=== PATIENT | female | born 1960 | race Asian ===

== ENCOUNTER 2016-10-19 08:43 | Inpatient (IN) | payer OTHER ==
[~2016-10-19] VITALS: Ht 170.2 cm; Wt 81.1 kg
[2016-10-19] MEDS ORDERED: SOD CHLORIDE 0.9% 1,000 ML IV STA (09:18)
[2016-10-19] MEDS ORDERED: CLIN-73 GTB (09:37)
[2016-10-19] MEDS ORDERED: LACT1CAP4 GTB (09:38)
[2016-10-19] MEDS ORDERED: ALBU2.5V3 NEB ×2 (09:39)
[2016-10-19] MEDS ORDERED: CHLO473M4 MM (09:40)
[2016-10-19] MEDS ORDERED: DOCU-144 GTB (09:42)
[2016-10-19] MEDS ORDERED: DESM0.1T2 GTB (09:46)
[2016-10-19] MEDS ORDERED: BISA10SU55 RC (09:47)
[2016-10-19] MEDS ORDERED: APIX5TAB GTB (09:48)
[2016-10-19] MEDS ORDERED: FERR220S3 GTB (09:52)
[2016-10-19] MEDS ORDERED: [UNRECOGNIZED DRUG - CODE] RC (09:53)
[2016-10-19] MEDS ORDERED: LEVE500S9 GTB (09:54)
[2016-10-19] MEDS ORDERED: ATOR20TA38 GTB (09:54)
[2016-10-19] MEDS ORDERED: MAGN400O4 GTB (09:55)
[2016-10-19] MEDS ORDERED: ACET-2047 GTB ×3 (09:56→10:04)
[2016-10-19 09:57] LABS: ADD SCAN DIFF NO
[2016-10-19] MEDS ORDERED: RANI150T5 GTB (09:58)
[2016-10-19] MEDS ORDERED: CALC-516 GTB (09:59)
[2016-10-19] MEDS ORDERED: ZINC220T GTB (10:00)
[2016-10-19 10:01] LABS: ABNORMAL IP MESSAGE 1; MEAN CORPUSCULAR HEMOGLOBIN 34.5 pg (29.0-33.0); MEAN CORPUSCULAR HGB CONC 34.8 g/dl (32.0-37.0); MEAN CORPUSCULAR VOLUME 99.1 fl (82.0-101.0); PLATELET COUNT 53 10^3/UL (140-415); RED BLOOD COUNT 2.32 10^6/ul (4.20-5.40); RED CELL DISTRIBUTION WIDTH 17.3 % (11.5-14.5); WHITE BLOOD COUNT 5.7 10^3/ul (4.8-10.8)
[2016-10-19] MEDS ORDERED: CRAN3875 GTB (10:01)
[2016-10-19] MEDS ORDERED: ASCO500S2 GTB (10:01)
[2016-10-19] MEDS ORDERED: ACET-141 PO (10:02)
[2016-10-19 10:15] LABS: ALBUMIN 3.6 g/dl (3.3-4.9); POTASSIUM 4.9 mmol/L (3.5-5.1)
[2016-10-19] MEDS ORDERED: MULT9LIQ4 GTB (10:15)
[2016-10-19 10:17] LABS: BILIRUBIN,INDIRECT 0.5 mg/dl (0-1.1); BILIRUBIN,TOTAL 0.5 mg/dl (0.2-1.3); CREATININE 0.6 mg/dl (0.44-1.00); INR 0.87; PROTIME 11.8 Sec (12.2-14.2); PT RATIO 0.9
[2016-10-19 10:18] LABS: ALBUMIN/GLOBULIN RATIO 0.94; PARTIAL THROMBOPLASTIN TIME 33.9 Sec (25.0-35.0); TOTAL PROTEIN 7.4 g/dl (6.1-8.1)
[2016-10-19] MEDS ORDERED: ACETAMINOPHEN 325 MG TAB PO PRN (11:00)
[2016-10-19] MEDS ORDERED: ONDANSETRON 4 MG INJ IV PRN (11:00)
[2016-10-19] MEDS ORDERED: ALBUTEROL 0.083% (NEB) 2.5 MG/3 ML AMP NEB PRN (12:30)
--- NOTE | 2016-10-19 13:19 | HP ---
DATE OF ADMISSION: 10/19/2016 HISTORY OF CHIEF COMPLAINT: Drop in hemoglobin noted on routine labs at long term [facility] [place]. 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 Patient also with history of respiratory failure with tracheostomy and dysphagia with percutaneous endoscopic gastrostomy. The patient was subsequently decannulated. However, in May of 2006, the patient had a severe pneumonia and had to be placed on ventilatory support and underwent tracheostomy. Patient also with coronary artery disease, diabetes mellitus, hypothyroidism, seizure disorder, COPD, CHF, history of KS, and DVT. The patient was recuperating at [facility] [place] and noted to have a hemoglobin drop to 8. Per previous records, the patient's hemoglobin was 10.4. Unfortunately, patient is Orthodoxy and cannot get blood transfusion. On evaluation in the emergency room, the hemoglobin was 8.0, hematocrit 23.0, and the patient will be admitted for further evaluation and management. PAST MEDICAL/SURGICAL HISTORY: Per HPI. SOCIAL HISTORY: Patient is currently a resident of a long term facility. There are no reports of tobacco, alcohol or illicit drug use. FAMILY HISTORY: None. ALLERGIES: NO KNOWN ALLERGIES. MEDICATIONS ON ADMISSION: 1. Tylenol. 2. DuoNeb. 3. Eliquis. 4. Vitamin C. 5. Atorvastatin. 6. Bisacodyl p.r.n. 7. Peridex. 8. Desmopressin. 9. Colace. 10. Keppra. 11. Mineral oil. 12. Ranitidine. 13. Zinc sulfate. 14. Calcium carbonate.. 15. Vitamin D3. 16. Cranberry extract. 17. Acidophilus pectin capsule 18. Multivitamins with iron. REVIEW OF SYSTEMS: Unable to obtain due to patient's condition. The patient is status post cerebrovascular accident and cannot provide any history. PHYSICAL ASSESSMENT GENERAL: Well-developed, well-nourished female. Currently opens eyes in traces. Does not follow any commands. VITAL SIGNS: Temperature is 98.1, pulse is 57, respiratory rate 20, blood pressure 156/69, saturation is 99% on 4 liters via the tracheostomy site. HEENT: Head is atraumatic, normocephalic. Pupils equal, round, reactive to light and accommodation. Patient has small area of subconjunctival hemorrhage over medial corner of left eye. Oral mucosa is pink and moist. NECK: Supple. There is a tracheostomy at the base of the neck with no bleeding. CHEST: Lungs have diminished air entry bilaterally, scattered rhonchi. CARDIOVASCULAR: Normal S1, S2. No murmurs, gallops, clicks, or rubs noted. ABDOMEN: Protuberant, soft, nondistended, nontender. G-tube with intact stoma. EXTREMITIES: Mild edema. Pulses equal bilaterally 2+. Patient has a right side dense hemiplegia. SKIN: There is no rash, petechiae noted. NEUROLOGIC: Patient is nonverbal, awake, opens eyes and traces, does not follow any commands. LABORATORY DATA: On admission, CBC: White blood cells 5.7, hemoglobin 8.0, hematocrit 23.0, platelets 53. Chemistry: Sodium is 134, potassium 4.9, chloride 98, carbon dioxide 28, anion gap 15, BUN is 30, creatinine 0.6, glucose 85. AST is 71, ALT, 86, alkaline phosphate is 138, lipase is 411. ASSESSMENT AND PLAN: 1. Anemia and thrombocytopenia: The patient is Orthodoxy and cannot get any blood products. Would continue to monitor patient. We will obtain a stool for OD. Ask Dr. Bishop to see patient in gastroenterology consultation. 2. Tracheostomy with history of respiratory failure and pneumonia: Will obtain chest x-ray and continue breathing treatment and oxygen supplementation. 3. History of chronic obstructive pulmonary disease. 4. History of cerebrovascular accident with right-sided hemiplegia. 5. Dysphagia with PEG tube: Will resume patient's PEG tube feeding. Continue aspiration precaution 6. Diabetes mellitus type 2. Would obtain venous Doppler. If negative, we will start patient on sequential compression device for deep venous thrombosis prophylaxis. Continue Protonix for peptic ulcer disease prophylaxis. Further recommendations based on clinical course. Plan of care discussed with Dr. Lisa. Dictated By: LATONIA CONRAD ENGLISH COMPOSITION TEACHER for SMILEY LISA MD, SR/NTS Conf#: [id number] DID#: [id number] MTDD
--- NOTE | 2016-10-19 13:20 | RADRPT ---
PROCEDURE: Chest Radiograph. CLINICAL INDICATION: Pneumonia TECHNIQUE: Single frontal chest radiograph. COMPARISON: None available FINDINGS: The patient is moderately rotated. Heart size is poorly evaluated. Atherosclerotic calcifications are present. There is moderate elevation of the right hemidiaphragm. There is low lung volumes with basilar atelectasis. No confluent or lobar infiltrate is seen. The bones are intact. IMPRESSION: 1. Low lung volumes basilar atelectasis. 2. Elevation right hemidiaphragm. RPTAT: KK .Balaji Christianson MD, MD Date Time Electronically viewed and signed by .Balaji Christianson MD, MD on 10/19/2016 13:19 .B/
--- NOTE | 2016-10-19 13:29 | RADRPT ---
PROCEDURE: US Lower extremity Venous. CLINICAL INDICATION: Pain and swelling TECHNIQUE: Multiple sonographic images of the bilateral lower extremity deep venous system was obt ained utilizing grayscale, color-flow, compressive sonography and doppler imaging with augmentation. The images were reviewed on a PACS workstation. COMPARISON: None. FINDINGS: There is normal compressibility and flow within the bilateral common femoral, deep femoral, superfic ial femoral, posterior tibial, peroneal and popliteal veins. IMPRESSION: No sonographic evidence for deep venous thrombosis. RPTAT:AAJJ Physician Vernon Date Time Electronically viewed and signed by Physician Vernon on 10/19/2016 13:29 /
--- NOTE | 2016-10-19 13:47 | ERA ---
ER Documentation Chief Complaint Date/Time DATE: 10/19/16 TIME: 13:39 Chief Complaint FROM [facility] DUE ELEVATED BUN HPI This 56-year-old female who is noncommunicative her baseline and has multiple medical comorbidities was sent to the ER for workup of low platelets and low hemoglobin. She was sent from her facility by Dr. Lisa. Current her paperwork she's had low hemoglobin and also has low platelets. She is a Jehov[employer]' s Witness and cannot receive blood products according to the paperwork sent with her. There are no reports of abnormal vital signs. There are no reports of GI bleeding. ROS All systems reviewed and are negative except as per history of present illness. Medications Home Meds Reported Medications Multivit &Minerals/Ferrous Fum (MULTIVITAMIN LIQUID) 9 Mg/15 Ml Liquid, 3 MG GTB DAILY 10/19/16 Acetaminophen* (Acetaminophen*) 650 Mg Tablet, 650 MG GTB BID Y for G-TUBE CHANGE, #30 TAB 10/19/16 Acetaminophen* (Acetaminophen*) 500 MG Extra Strength Tablet, 1000 MG PO Q4 Y for MODERATE PAIN LEVEL 4-6, TAB 10/19/16 Cran/Vitc/Mannose/Inulin/Brom (Uti-Stat Liquid) 3,875 Mg/30 Ml Liquid, 30 MG GTB DAILY 10/19/16 Ascorbic Acid* (Vitamin C* Liq) 500 Mg/5 Ml Syrup, 500 MG GTB DAILY, ML 10/19/16 Zinc Sulfate* (Zinc Sulfate*) 220 Mg Tablet, 220 MG GTB DAILY, TAB 10/19/16 Calcium Carbonate/Vitamin D3 (OYSTER SHELL CALCIUM TABLET) 1 Each Tablet, 1 EACH GTB DAILY, TAB 10/19/16 Ranitidine Hcl* (Ranitidine Hcl*) 150 Mg Tablet, 150 MG GTB Q12, #60 TAB 10/19/16 Acetaminophen* (Acetaminophen*) 650 Mg Tablet, 650 MG GTB TRACH CHANGE Y for PAIN AND OR ELEVATED TEMP, #30 TAB GIVE 30 MIN PRIOR TO CHANGING 10/19/16 Acetaminophen* (Acetaminophen*) 650 Mg Tablet, 650 MG GTB Q4H WHILE AWAKE Y for MILD PAIN LEVEL 1-3, #30 TAB 10/19/16 Magnesium Hydroxide* (Milk Of Magnesia*) 400 Mg/5 Ml Oral.susp, 30 ML GTB DAILY Y for CONSTIPATION, ML 10/19/16 Atorvastatin Calcium* (Atorvastatin Calcium*) 20 Mg Tablet, 20 MG GTB QHS, #30 TAB 10/19/16 Levetiracetam* (Levetiracetam*) 500 Mg/5 Ml Solution, 500 MG GTB BID, ML 10/19/16 Mineral Oil (READY TO USE ENEMA) 133 Ml Enema, 133 ML RC PRN Y for SEVERE CONSTIPATION, ENEMA 10/19/16 Ferrous Sulfate (Ferrous Sulfate) 220 Mg/5 Ml Elixir, 330 MG GTB TID, BOTTLE 10/19/16 Apixaban* (Eliquis*) 5 Mg Tablet, 5 MG GTB BID, TAB 10/19/16 Bisacodyl (Dulcolax) 10 Mg Supp.rect, 10 MG RC PRN Y for CONSTIPATION, SUPP.RECT 10/19/16 Desmopressin Acetate* (Ddavp*) 0.1 Mg Tablet, 0.15 MG GTB BID, #60 TAB 10/19/16 Docusate Sodium* (Colace*) 100 Mg Capsule, 100 MG GTB QHS Y for CONSTIPATION, # 30 CAP 10/19/16 Chlorhexidine Gluconate (Peridex) 473 Ml Mouthwash, 15 ML MM Q12, BOTTLE 10/19/16 Albuterol Sulfate* (Albuterol Sulfate* Neb) 0.083%-3 Ml Neb, 2.5 MG NEB Q3H Y for WHEEZING AND SOB, #30 VIAL 10/19/16 Albuterol Sulfate* (Albuterol Sulfate* Neb) 0.083%-3 Ml Neb, 2.5 MG NEB Q6 Y for WHEEZING AND SOB, #30 VIAL 10/19/16 Lactobacillus Acidophilus/Pect (Acidophilus-Pectin Capsule) 1 Each Capsule, 1 EACH GTB DAILY, CAP 10/19/16 Clindamycin Hcl* (Clindamycin Hcl*) 300 Mg Capsule, 300 MG GTB Q6, CAP STARTED 10-16-16 FOR 10 DAYS 10/19/16 Allergies Allergies: Coded Allergies: No Known Allergy (Unverified , 10/19/16) PMhx/Soc History of Surgery: Yes (TRACH) Hx Alcohol Use: No Hx Substance Use: No Smoking Status: Never smoker Physical Exam Vitals Vital Signs Date Time Temp Pulse Resp B/P Pulse Ox O2 Delivery O2 Flow Rate FiO2 10/19/16 10:28 4.0 10/19/16 09:00 98.1 57 20 156/69 99 Physical Exam Const: [] Mild distress Head: Atraumatic Eyes: Normal Conjunctiva ENT: Normal External Ears, Nose and slightly dry mucous membranes with a mouth. Neck: Full range of motion..~ No meningismus. Resp: Clear to auscultation bilaterally Cardio: Regular rate and rhythm, no murmurs Abd: Soft, non distended. Normal bowel sounds Skin: No petechiae or rashes Ext: No cyanosis, distal pulses intact all 4 extremities Neur: Awake and alert, stares off to the right, does not follow commands and is nonverbal. Unable to cooperate with full neurological examination Result Diagram: 10/19/16 0940 10/19/16 0940 Results 24 hrs Laboratory Tests Test 10/19/16 09:40 White Blood Count 5.710^3/ul Red Blood Count 2.3210^6/ul Hemoglobin 8.0g/dl Hematocrit 23.0% Mean Corpuscular Volume 99.1fl Mean Corpuscular Hemoglobin 34.5pg Mean Corpuscular Hemoglobin Concent 34.8g/dl Red Cell Distribution Width 17.3% Platelet Count 5310^3/UL Mean Platelet Volume 11.0fl Prothrombin Time 11.8Sec Prothrombin Time Ratio 0.9 INR International Normalized Ratio 0.87 Activated Partial Thromboplast Time 33.9Sec Sodium Level 134mmol/L Potassium Level 4.9mmol/L Chloride Level 98mmol/L Carbon Dioxide Level 28mmol/L Anion Gap 13 Blood Urea Nitrogen 30mg/dl Creatinine 0.60mg/dl Glucose Level 85mg/dl Lactic Acid Level 0.9mmol/L Calcium Level 9.0mg/dl Total Bilirubin 0.5mg/dl Direct Bilirubin 0.00mg/dl Indirect Bilirubin 0.5mg/dl Aspartate Amino Transf (AST/SGOT) 71IU/L Alanine Aminotransferase (ALT/SGPT) 86IU/L Alkaline Phosphatase 138IU/L Total Protein 7.4g/dl Albumin 3.6g/dl Globulin 3.80g/dl Albumin/Globulin Ratio 0.94 Lipase 411U/L Current Medications Medications (Trade) Dose Ordered Sig/Holden Route PRN Reason Start Time Stop Time Status Last Admin Dose Admin Sodium Chloride (NS) 1,000 ml @ 1,000 mls/hr Q1H STAT IV 10/19/16 09:18 10/19/16 10:17 DC 10/19/16 10:02 Ondansetron HCl (Zofran Inj) 4 mg BRIDGE ORDER PRN IV NAUSEA AND/OR VOMITING 10/19/16 11:00 10/20/16 10:59 Acetaminophen (Tylenol Tab) 650 mg ER BRIDGE PRN PO MILD PAIN/FEVER 10/19/16 11:00 10/20/16 10:59 Albuterol (Proventil 0.083% (Neb)) 2.5 mg Q3H RESP THERAPY PRN NEB WHEEZING AND SOB 10/19/16 12:30 Ascorbic Acid (Vitamin C) 500 mg DAILY GTB 10/20/16 09:00 UNV Atorvastatin Calcium (Lipitor) 20 mg QHS GTB 10/19/16 21:00 Docusate Sodium (Colace) 100 mg QHS PO 10/19/16 21:00 Levetiracetam (Keppra Liquid) 500 mg BID GTB 10/19/16 21:00 Zinc Sulfate (Zinc Sulfate) 220 mg DAILY GTB 10/20/16 09:00 Pantoprazole (Protonix Iv) 40 mg DAILY@06 IV 10/20/16 06:00 Ascorbic Acid (Vitamin C) 500 mg DAILY PO 10/20/16 09:00 Procedures/MDM Very low hemoglobin and thrombocytopenia. She cannot be transfused. There is no active bleeding currently. I spoke with Dr. Bard vargas advised the patient be admitted for neoplastic workup and she continues to have very low blood levels. Patient has insurance which she may be Due to another hospital multiple attempts by registration a been made to contact the insurance, he was no results except for an answering machine and no return calls. Is Dr. Lisa knows the patient well she would benefit from admission by Dr. Lisa for further workup. She'll be admitted to the medical surgical floor. quality assurance monitor final interpretation: Normal sinus rhythm without arrhythmia Departure Diagnosis: Primary Impression: Severe anemia Additional Impressions: Thrombocytopenia Hyponatremia Elevated liver function tests Dehydration Condition: Stable DIEGO RODRIGEZ DO Oct 19, 2016 13:47
[2016-10-19 13:55] LABS: EOSINOPHILS # 0.1 10^3/ul (0.0-0.5); MONOCYTE # 0.3 10^3/ul (0.3-0.9); NEUTROPHIL # 3.8 10^3/ul (1.6-7.5)
[2016-10-19] MEDS ORDERED: PEG/ELECTROLYTES 4L BTL GTB ONE (16:00)
[2016-10-19 17:00] VITALS: BP 141/65; RESP 18
--- NOTE | 2016-10-19 18:26 | CONS ---
DATE OF ADMISSION: 10/19/2016 DATE OF CONSULTATION: 10/19/2016 TYPE OF CONSULTATION: Gastroenterology. Dear Dr. Villatoro: Thank you for asking me to see Mrs. Toro in GI consultation. HISTORY OF PRESENT ILLNESS: The patient, as you know, is a 56-year-old [place] female. At this ti me, was brought to the emergency room because of the history of severe anemia and on admission hemog lobin was 8.0, WBC count 5700, platelets 53,000. Prothrombin time 11.8. BUN is 30, creatinine 0.6, bilirubin 0.5, AST 71, ALT 86, alkaline phosphatase 138. The chest x-ray shows evidence of low lung volumes, elevated right hemidiaphragm. However, from the rest of the history standpoint, the patie nt has history of CVA, history of respiratory failure, status post tracheostomy, and dysphagia, she has a PEG in place. She also has history of COPD, seizure disorder, coronary artery disease and DVT. MEDICATIONS: At this time include prior to the admission: 1. DuoNeb. 2. Eliquis. 3. Vitamin C. 4. Atorvastatin. 5. Bisacodyl. 6. Peridex. 7. Desmopressin 8. Colace. 9. Keppra. 10. Ranitidine. 11. Cranberry. 12. Acidophilus. PAST MEDICAL HISTORY: Includes respiratory failure, tracheostomy. PHYSICAL EXAMINATION: GENERAL: The patient is a 56-year-old [place] female who at this time she is intubated. She is un able to communicate. She is unresponsive. VITAL SIGNS: Pulse is 61, blood pressure 141/65. CARDIOVASCULAR: Normal heart sounds. RESPIRATORY: Normal breath sounds. ABDOMEN: Showed unremarkable findings except G-tube in place. LABORATORY DATA: Workup already as mentioned earlier on. CLINICAL IMPRESSION: 1. The patient presenting with history of severe anemia, rule out gastrointestinal bleeding, peptic ulcer disease, arteriovenous malformation. Probably anemia could be also chronic disease. She has thrombocytopenia. I doubt if we are dealing with any suggestion of cirrhosis, but it is possible. 2. Respiratory failure. PLAN: At this time, recommend upper endoscopy as well as lower endoscopy. Once again, I would like to thank you for this consultation. Dictated By: SAGAR JACK/ATA Conf#: [id number] [facility]#: [id number] CC: SMILEY VILLATORO MD; SAGAR JAMES MD;*End*
[2016-10-19 19:56] VITALS: BP 143/63; RESP 18
[2016-10-19] MEDS ORDERED: LEVETIRACETAM (100 MG/ML) 5ML CUP GTB SCH (21:00)
[2016-10-19] MEDS: DOCUSATE SODIUM 100 MG CAP PO SCH (22:01)
[2016-10-19] MEDS: ATORVASTATIN 20 MG TAB GTB SCH (22:01)
[2016-10-20] MEDS ORDERED: HYDROCODONE/APAP (5/325) TAB NGT PRN
[2016-10-20] MEDS ORDERED: ALBUTEROL/IPRATROPIUM (NEB) 3 ML AMP HHN PRN
[2016-10-20] MEDS ORDERED: VANCOMYCIN IV PER PHARMACY XX SCH
[2016-10-20 00:02] VITALS: Ht 170.2 cm; Wt 81.1 kg
[2016-10-20] MEDS ORDERED: VANCOMYCIN 1.75 GM in NS 500 ML IVPB ONE (01:00)
[2016-10-20] MEDS: CEFEPIME 1GM/50 ML (PMX) 50 ML IVPB SCH ×2 (01:06→10:32)
[2016-10-20] MEDS: DEXTROSE 5%-0.45% NACL 1,000 ML IV SCH ×2 (01:07→13:20)
[2016-10-20] MEDS: ALBUTEROL/IPRATROPIUM (NEB) 3 ML AMP HHN SCH ×4 (01:44→20:39)
[2016-10-20] MEDS ORDERED: ALBUTEROL/IPRATROPIUM (NEB) 3 ML AMP HHN SCH (02:00)
[2016-10-20] MEDS: PANTOPRAZOLE 40 MG INJ IV SCH (05:11)
[2016-10-20 07:00] LABS: ADD SCAN DIFF NO
[2016-10-20 07:11] LABS: ABNORMAL IP MESSAGE 1; HEMATOCRIT 22.9 % (37.0-47.0); HEMOGLOBIN 7.6 g/dl (12.0-16.0); MEAN CORPUSCULAR HEMOGLOBIN 33.8 pg (29.0-33.0); MEAN CORPUSCULAR HGB CONC 33.2 g/dl (32.0-37.0); MEAN CORPUSCULAR VOLUME 101.8 fl (82.0-101.0); MEAN PLATELET VOLUME 10.7 fl (7.4-10.4); PLATELET COUNT 54 10^3/UL (140-415); RED BLOOD COUNT 2.25 10^6/ul (4.20-5.40); RED CELL DISTRIBUTION WIDTH 18.2 % (11.5-14.5); WHITE BLOOD COUNT 5.1 10^3/ul (4.8-10.8)
[2016-10-20 08:15] VITALS: BP 126/60; RESP 22
[2016-10-20] MEDS ORDERED: ASCORBIC ACID 100 MG/ML 120ML BTL GTB SCH (09:00)
[2016-10-20] MEDS: ASCORBIC ACID 500 MG TAB PO SCH ×2 (09:00→16:46)
[2016-10-20] MEDS ORDERED: EPOETIN 10000 UNITS/ML (NON ESRD/NON ONCOLOGY) SC ONE (09:00)
[2016-10-20] MEDS: ZINC SULFATE 220 MG CAP GTB SCH ×2 (09:00→16:47)
[2016-10-20 09:39] LABS: CREATININE 0.65 mg/dl (0.44-1.00)
[2016-10-20 09:40] LABS: CALCIUM 8.5 mg/dl (8.4-10.2)
--- NOTE | 2016-10-20 10:05 | PN ---
Date/Time of Note Date/Time of Note DATE: 10/20/16 TIME: 09:56 Assessment/Plan VTE Prophylaxis VTE Prophylaxis Intervention: SCD's Lines/Catheters IV Catheter Type (from Nrsg): Saline Lock Assessment/Plan Assessment/Plan 1. Anemia and thrombocytopenia: The patient is Gnosticist - stool for OB - Ask Dr. Bishop to see patient in gastroenterology consultation. -Patient is scheduled for possible EGD today - hematogy consult- dr Bradley 2. Tracheostomy with history of respiratory failure and pneumonia: Remains on aerosol, doing well - chest x-ray and continue breathing treatment and oxygen supplementation. 3. History of chronic obstructive pulmonary disease. 4. History of cerebrovascular accident with right-sided hemiplegia. 5. Dysphagia with PEG tube: - Aspiration precaution - resume patient's PEG tube feeding. Tube feeding is on hold for possible EGD today 6. Diabetes mellitus type 2. -Glycemic control 7. Epilepsy-patient on Keppra -will change to IV Keppra because patient is not n.p.o. for possible EGD today -Seizure precautions 8. Sequential compression device for deep venous thrombosis prophylaxis. 9. Protonix for peptic ulcer disease prophylaxis. Further recommendations based on clinical course. Plan of care discussed with Dr. Lisa. Subjective 24 Hr Interval Summary Constitutional: requiring IVF, requiring O2 Eyes: no complaints ENT: no complaints Respiratory: no complaints Cardiovascular: no complaints Gastrointestinal: no complaints Genitourinary: no complaints Musculoskeletal: no complaints Exam/Review of Systems Vital Signs Vitals Vital Signs Date Time Temp Pulse Resp B/P Pulse Ox O2 Delivery O2 Flow Rate FiO2 10/20/16 08:15 97.9 22 22 126/60 95 10/20/16 01:44 Aerosol 5.0 28 Intake and Output 10/19/16 10/19/16 10/20/16 15:00 23:00 07:00 Intake Total 100 ml Balance 100 ml Exam Constitutional: alert, well developed Psych: nl mood/affect Eyes: nl sclera ENMT: nl external ears & nose Neck: non-tender Respiratory: diminished breath sounds (Diminished breath sounds bilateral lungs and bases) Cardiovascular: nl pulses Gastrointestinal: non-tender, other (G-tube intact, tube feeding on hold due to possible EGD today), soft Genitourinary - Female: other Musculoskeletal: muscle weakness (We will get PT evaluation) Neurological: confused, lethargic Lymph: nontender Results Result Diagram: 10/20/16 0640 10/20/16 0640 Results 24 hrs Laboratory Tests Test 10/19/16 16:17 10/20/16 06:40 Bedside Glucose 98 White Blood Count 5.1 Red Blood Count 2.25 L Hemoglobin 7.6 L Hematocrit 22.9 L Mean Corpuscular Volume 101.8 H Mean Corpuscular Hemoglobin 33.8 H Mean Corpuscular Hemoglobin Concent 33.2 Red Cell Distribution Width 18.2 H Platelet Count 54 L Mean Platelet Volume 10.7 H Sodium Level 144 Potassium Level 4.0 Chloride Level 108 # Carbon Dioxide Level 28 Anion Gap 12 Blood Urea Nitrogen 21 H Creatinine 0.65 Glucose Level 88 Calcium Level 8.5 Medications Medications Current Medications Atorvastatin Calcium (Lipitor) 20 mg QHS GTB Last administered on 10/19/16 22: 01; Admin Dose 20 MG; Start 10/19/16 at 21:00 Docusate Sodium (Colace) 100 mg QHS PO Last administered on 10/19/16 22:01; Admin Dose 100 MG; Start 10/19/16 at 21:00 Levetiracetam (Keppra Liquid) 500 mg BID GTB Last administered on 10/19/16 15: 50; Admin Dose 500 MG; Start 10/19/16 at 21:00 Zinc Sulfate (Zinc Sulfate) 220 mg DAILY GTB ; Start 10/20/16 at 09:00 Pantoprazole (Protonix Iv) 40 mg DAILY@06 IV Last administered on 10/20/16 05: 11; Admin Dose 40 MG; Start 10/20/16 at 06:00 Ascorbic Acid 500 mg 500 mg DAILY PO ; Start 10/20/16 at 09:00 Cefepime HCl 50 ml @ 100 mls/hr Q12 IVPB Last administered on 10/20/16 01:06 ; Admin Dose 100 MLS/HR; Start 10/20/16 at 00:00 Vancomycin HCl/ Sodium Chloride (Vancocin/NS) 250 ml @ 83.333 mls/ hr Q12H IVPB ; Start 10/20/16 at 13:00 Acetaminophen/ Hydrocodone Bitart 1 tab 1 tab Q4H PRN NGT PAIN; Start 10/20/16 at 00:00 Dextrose/Sodium Chloride (D5-1/2ns) 1,000 ml @ 75 mls/hr [id number] IV Last administered on 10/20/16t 01:07; Admin Dose 75 MLS/HR; Start 10/20/16 at 00:00 PAOLO GARCIA Oct 20, 2016 10:05
[2016-10-20 10:23] LABS: PLATELET ESTIMATE PLT APPEAR DECREASED
[2016-10-20] MEDS: LEVETIRACETAM 500 MG (PMX) 100 ML IVPB SCH ×2 (11:53→21:20)
--- NOTE | 2016-10-20 12:30 | CONS ---
DATE OF ADMISSION: 10/19/2016 DATE OF CONSULTATION: 10/20/2016 TYPE OF CONSULTATION: Nephrology REASON FOR CONSULTATION: Hyponatremia central diabetes insipidus. REFERRING PHYSICIAN: Dr. Lisa. HISTORY OF PRESENT ILLNESS: This is a 56-year-old female who has a past medical history of previous CVA with left-sided residual weakness since 2013, history of chronic respiratory failure with statu s post tracheostomy, dysphagia status post PEG tube placement, history of COPD, CHF with ejection fr action 35% to 40%, hypothyroidism, seizure disorder, diabetes mellitus, coronary artery disease, his tory of a previous DVT, history of previous central diabetes insipidus. She is a [employer]. The patient has been on desmopressin 0.1 mg p.o. b.i.d. at the [facility]. She was brought back to the [facility] because of having low hemoglobin, low platelet coun t and also other significant right upper extremity swelling. The patient gets admitted to the med/s urg floor. She is currently hemodynamically stable, but the patient has a very significant right ar m and right forearm swelling. A previous history of atrial fibrillation, she has been on previous c hronic anticoagulation. She was on Eliquis 5 mg p.o. b.i.d. At the time of my evaluation, the patient is nonverbal, noncommunicative due to her tracheostomy, on ventilator. REVIEW OF SYSTEMS: Unable to obtain from the patient since she is currently status post tracheostom y, noncommunicative. PAST MEDICAL HISTORY: Hypertension, hyperlipidemia, diabetes mellitus, coronary artery disease, hyp othyroidism, seizure disorder, COPD, CHF, history of previous DVT, history of previous CVA with resi dual left-sided hemiparesis. History of chronic respiratory failure, status post tracheostomy and d ysphagia with a percutaneous endoscopic gastrostomy tube placement. SOCIAL HISTORY: The patient is currently a retirementdirector of nursing. No report of tobacco, alcohol or illicit drug use as per the charting. FAMILY HISTORY: Not available. ALLERGIES: NO KNOWN DRUG ALLERGIES. MEDICATIONS: Have been reviewed. The patient has been on desmopressin in the [facility] it. PHYSICAL EXAMINATION: VITAL SIGNS: Temperature 97.9, heart rate 73, respirations 22, blood pressure 126/60, saturation is 94% to 95% on 5 liters through the tracheostomy. The tracheostomy site is clear. No erythema, no discharge. NECK: Supple. No JVD. LUNGS: Decreased breath sounds at both lung bases. HEART: S1, S2, tachycardia, no murmur. ABDOMEN: Soft. G-tube is in place. EXTREMITIES: The patient has a significant right upper extremity swelling all the way up to her arm and shoulder. Lower extremities, 1 to 2+ pitting edema. NEUROLOGICAL: Uncooperative for exam. SKIN: Not assessed. LABORATORY DATA/DIAGNOSTIC IMAGIN. WBC 5.1, hemoglobin 7.6, platelet count is 54. 2. Sodium 134, potassium 4.9, chloride 98, bicarbonate 28, BUN 30, creatinine 0.6, glucose 85. LFT s are slightly elevated. Albumin 3.6. Lipase 411. PT 11.8, PTT 33.9, INR 0.87. 3. of the right upper extremity, no DVT. 4. Chest x-ray shows low lung volumes and bibasilar atelectasis, elevation of right hemidiaphragm. IMPRESSION: This is a 56-year-old female who has been getting admitted from a retirement [facility] it for right upper extremity cellulitis, thrombocytopenia with a severe anemia also has a history o f possible diabetes insipidus, has been on desmopressin in a retirement facility and renal has been consulted for: 1. 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 2. History of chronic respiratory failure, status post tracheostomy, currently on Sheri mask. 3. 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 4. History of G-tube placement. 5. History of congestive heart failure with ejection fraction of 45% on last echocardiogram. 6. History of hypothyroidism. 7. History of hypertension. 8. History of diabetes mellitus. 9. History of coronary artery disease. 10. The patient has central diabetes insipidus secondary to her previous CVA with a hemorrhagic con version. PLAN: Thank you, Dr. Lisa, for this consultation. The patient likely has central diabetes insi pidus. I will continue her on desmopressin 0.1 mg p.o. b.i.d. through her G-tube. Continue the oth er medications and IV antibiotics for her right upper extremity cellulitis. 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 Continue the other IV antibiotic. She will also need a Hematology/Oncology consultation due to her thrombocytopenia and severe anemia. Patient is currently seen in the med/surg floor. I will order some iron studies and ferritin with B12 and folate level and will follow up on the pending studies. Thank you, Dr. Lisa, for this consultation and I will continue to follow this patient along with you. Total time spent in this patient's evaluation, making an assessment and plan and communicating with the nursing staff on the floor took more than 90 minutes. Dictated By: MARTHA PRICE MD, KP/ATA Conf#: [id number] DID#: [id number]
[2016-10-20] MEDS ORDERED: VANCOMYCIN 1.25 GM in SOD CHLORIDE 0.9% 250 ML IVPB SCH (13:00)
--- NOTE | 2016-10-20 13:14 | CONS ---
Date/Time of Note Date/Time of Note DATE: 10/20/16 TIME: 13:10 Assessment/Plan Assessment/Plan Additional Assessment/Plan Chest x-ray was reviewed from yesterday which is essentially clear. Patient does have increased lipase level at 411. Lower extremity ultrasound was done which is negative for DVT. Assessment recommendations; 1. Patient admitted for anemia with hemoglobin of around 8. Next #2. Currently no evidence of any infective process. 3. Multiple other comorbidities including seizures, CHF, diabetes, diabetes insipidus, history of hyponatremia, diabetes hypothyroidism. Discontinue antibiotics. Observe for any further drop in hematocrit. Patient needs to have a GI workup done. Consultation Date/Type/Reason Admit Date/Time Oct 19, 2016 at 11:01 Date of Consultation: Oct 20, 2016 Type of Consultation: Pulmonary Reason for Consultation Pulmonary consultations obtained for evaluation of chronic respiratory failure, patient status post tracheostomy. Possibly pneumonia. History presenting any; patient is a 56-year-old oriented lady who was admitted yesterday transferred over from residential with drop in hematocrit. Without any overt bleeding be noted. Admission chest x-ray was done which is showing mild pulmonary vascular congestion without any acute infiltrates being identified. The patient is completely nonverbal and essentially unresponsive due to CVA. The time I saw the patient the patient is unresponsive and did not appear to be in any distress whatsoever. History was obtained from medical records. Past medical history; 1. History of CVA with very poor mental status. 2. History of severe pneumonia in the past requiring a tracheostomy patient currently maintained on tracheostomy only not requiring ventilator support. 3. Diabetes insipidus. 4. History of hyponatremia. 5. History of seizures. 6. CHF. 7. History of coronary artery disease, hypothyroidism, diabetes, 8. History of DVT. Medications; were reviewed. Allergies; none. Social history; most of any smoking, alcohol or drug abuse. Family history; patient is single, resides in residential facility. Occupational history; patient on disability. Review of systems; unable to be obtained. General exam; middle-aged woman, currently in no distress not awake. Constitutional: requiring IVF, requiring O2 Psychological: nl mood/affect Social History Smoking Status: Never smoker Exam/Review of Systems Vital Signs Vitals Vital Signs Date Time Temp Pulse Resp B/P Pulse Ox O2 Delivery O2 Flow Rate FiO2 10/20/16 08:15 97.9 22 22 126/60 95 10/20/16 01:44 Aerosol 5.0 28 Intake and Output 10/19/16 10/19/16 10/20/16 15:00 23:00 07:00 Intake Total 100 ml Balance 100 ml Exam HEENT examination; supple neck, no JVD. No lymphadenopathy. Midline trachea. No thyromegaly. Patient has few remaining teeth. Pupils are midsize and reactive to light bilaterally. No neck masses. No neck bruits. Tracheostomy in place with clean insertion site. Chest examination; diminished but clear breath sounds bilaterally. No added sound. S1-S2 audible, no murmurs. Regular rhythm. Abdomen examination; soft, no organomegaly, G-tube in place. Bowel sounds audible. Abdomen is nondistended. Extremity examination; no peripheral edema. Pulses 1+ bilaterally. Skin examination; no skin breakdowns noted. [employer] examination; patient remains unresponsive. Results Result Diagram: 10/20/16 0640 10/20/16 0640 Results 24 hrs Laboratory Tests Test 10/19/16 16:17 10/20/16 06:40 Bedside Glucose 98 White Blood Count 5.1 Red Blood Count 2.25 L Hemoglobin 7.6 L Hematocrit 22.9 L Mean Corpuscular Volume 101.8 H Mean Corpuscular Hemoglobin 33.8 H Mean Corpuscular Hemoglobin Concent 33.2 Red Cell Distribution Width 18.2 H Platelet Count 54 L Mean Platelet Volume 10.7 H Platelet Estimate PLT APPEAR DECREASED Sodium Level 144 Potassium Level 4.0 Chloride Level 108 # Carbon Dioxide Level 28 Anion Gap 12 Blood Urea Nitrogen 21 H Creatinine 0.65 Glucose Level 88 Calcium Level 8.5 Medications Medications Current Medications Atorvastatin Calcium (Lipitor) 20 mg QHS GTB Last administered on 10/19/16 22: 01; Admin Dose 20 MG; Start 10/19/16 at 21:00 Docusate Sodium (Colace) 100 mg QHS PO Last administered on 10/19/16 22:01; Admin Dose 100 MG; Start 10/19/16 at 21:00 Zinc Sulfate (Zinc Sulfate) 220 mg DAILY GTB ; Start 10/20/16 at 09:00 Pantoprazole (Protonix Iv) 40 mg DAILY@06 IV Last administered on 10/20/16 05: 11; Admin Dose 40 MG; Start 10/20/16 at 06:00 Ascorbic Acid 500 mg 500 mg DAILY PO ; Start 10/20/16 at 09:00 Cefepime HCl 50 ml @ 100 mls/hr Q12 IVPB Last administered on 10/20/16 10:32 ; Admin Dose 100 MLS/HR; Start 10/20/16 at 00:00 Vancomycin HCl/ Sodium Chloride (Vancocin/NS) 250 ml @ 83.333 mls/ hr Q12H IVPB ; Start 10/20/16 at 13:00 Acetaminophen/ Hydrocodone Bitart 1 tab 1 tab Q4H PRN NGT PAIN; Start 10/20/16 at 00:00 Dextrose/Sodium Chloride 1,000 ml @ 75 mls/hr [id number] IV Last administered on 10/20/16 01:07; Admin Dose 75 MLS/HR; Start 10/20/16 at 00:00 Levetiracetam (Keppra 500 Mg/ 100ml (Pmx)) 100 ml @ 400 mls/hr Q12 IVPB Last administered on 10/20/16 11:53; Admin Dose 400 MLS/HR; Start 10/20/16 at 11:00 Miscellaneous Information (*Rx Drug Level Order Reminder*) VANCOMYCIN TROUGH AT 1,200 ON... ONCE ONCE XX ; Start 10/21/16 at 12:00; Stop 10/21/16 at 12:01 Desmopressin Acetate (Ddavp) 0.1 mg BID PO ; Start 10/20/16 at 13:00 TERRIE MALLOY Oct 20, 2016 13:14
--- NOTE | 2016-10-20 16:42 | CONS ---
Date/Time of Note Date/Time of Note DATE: 10/20/16 TIME: 16:35 Assessment/Plan Assessment/Plan Chief Complaint/Hosp Course This is a 56-year-old female who has a past medical history of previous CVA with left-sided residual weakness since 2013, history of chronic respiratory failure with status post tracheostomy, dysphagia status post PEG tube placement , history of COPD, CHF with ejection fraction 35% to 40%, hypothyroidism, seizure disorder, diabetes mellitus, coronary artery disease, history of a previous DVT, history of previous central diabetes insipidus. She is a [employer]. She was brought back to the [facility] because of having low hemoglobin, low platelet count. Due to previous history of atrial fibrillation, she has been on previous chronic anticoagulation with Eliquis 5 mg p.o. b.i.d. At the time of my evaluation, the patient is nonverbal, noncommunicative due to her tracheostomy, on ventilator. No overt signs of bleeding. # Macrocytic anemia and thrombocytopenia - workup per GI with EGD/colonoscopy possibly tomorrow - will obtain labs including iron panel, ferritin, B12/folate, MMA, homocysteine , TSH, retic count, LDH, HIV, hep panel, DIC panel - will obtain abdominal US to eval liver/spleen - peripheral smear with path review requested - consider BMBx depending on above results - given patient is a [employer], would recommend iron and erythropoietin administration Problems: Consultation Date/Type/Reason Admit Date/Time Oct 19, 2016 at 11:01 Date of Consultation: Oct 20, 2016 Type of Consultation: Hematology Reason for Consultation Anemia Hx of Present Illness This is a 56-year-old female who has a past medical history of previous CVA with left-sided residual weakness since 2013, history of chronic respiratory failure with status post tracheostomy, dysphagia status post PEG tube placement , history of COPD, CHF with ejection fraction 35% to 40%, hypothyroidism, seizure disorder, diabetes mellitus, coronary artery disease, history of a previous DVT, history of previous central diabetes insipidus. She is a [employer]. She was brought back to the [facility] because of having low hemoglobin, low platelet count. Due to previous history of atrial fibrillation, she has been on previous chronic anticoagulation with Eliquis 5 mg p.o. b.i.d. At the time of my evaluation, the patient is nonverbal, noncommunicative due to her tracheostomy, on ventilator. No overt signs of bleeding. Patient has taken bowel prep with clear stool per nurse. Constitutional: requiring IVF, requiring O2 Psychological: nl mood/affect Past Medical History 1. History of CVA with very poor mental status. 2. History of severe pneumonia in the past requiring a tracheostomy patient currently maintained on tracheostomy only not requiring ventilator support. 3. Diabetes insipidus. 4. History of hyponatremia. 5. History of seizures. 6. CHF. 7. History of coronary artery disease, hypothyroidism, diabetes, 8. History of DVT. Family History Significant Family History: other (not available) Social History Smoking Status: Never smoker Exam/Review of Systems Vital Signs Vitals Vital Signs Date Time Temp Pulse Resp B/P Pulse Ox O2 Delivery O2 Flow Rate FiO2 10/20/16 14:45 72 22 96 Aerosol 5.0 28 10/20/16 08:15 97.9 126/60 Intake and Output 10/19/16 10/19/16 10/20/16 15:00 23:00 07:00 Intake Total 100 ml Balance 100 ml Exam Constitutional: well developed, opens eyes but not responsive Eyes: nl sclera ENMT: nl external ears & nose Neck: non-tender Respiratory: diminished breath sounds (Diminished breath sounds bilateral lungs and bases) Cardiovascular: regular rate and rhythm Gastrointestinal: non-tender, other (G-tube intact), soft Genitourinary - Female: other Musculoskeletal: muscle weakness Neurological: confused, lethargic Results Result Diagram: 10/20/16 0640 10/20/16 0640 Results 24 hrs Laboratory Tests Test 10/20/16 06:40 White Blood Count 5.1 Red Blood Count 2.25 L Hemoglobin 7.6 L Hematocrit 22.9 L Mean Corpuscular Volume 101.8 H Mean Corpuscular Hemoglobin 33.8 H Mean Corpuscular Hemoglobin Concent 33.2 Red Cell Distribution Width 18.2 H Platelet Count 54 L Mean Platelet Volume 10.7 H Platelet Estimate PLT APPEAR DECREASED Sodium Level 144 Potassium Level 4.0 Chloride Level 108 # Carbon Dioxide Level 28 Anion Gap 12 Blood Urea Nitrogen 21 H Creatinine 0.65 Glucose Level 88 Calcium Level 8.5 Medications Medications Current Medications Atorvastatin Calcium (Lipitor) 20 mg QHS GTB Last administered on 10/19/16 22: 01; Admin Dose 20 MG; Start 10/19/16 at 21:00 Docusate Sodium (Colace) 100 mg QHS PO Last administered on 10/19/16 22:01; Admin Dose 100 MG; Start 10/19/16 at 21:00 Zinc Sulfate (Zinc Sulfate) 220 mg DAILY GTB ; Start 10/20/16 at 09:00 Pantoprazole (Protonix Iv) 40 mg DAILY@06 IV Last administered on 10/20/16 05: 11; Admin Dose 40 MG; Start 10/20/16 at 06:00 Ascorbic Acid (Vitamin C) 500 mg DAILY PO ; Start 10/20/16 at 09:00 Acetaminophen/ Hydrocodone Bitart 1 tab 1 tab Q4H PRN NGT PAIN; Start 10/20/16 at 00:00 Dextrose/Sodium Chloride 1,000 ml @ 75 mls/hr [id number] IV Last administered on 10/20/16 01:07; Admin Dose 75 MLS/HR; Start 10/20/16 at 00:00 Levetiracetam (Keppra 500 Mg/ 100ml (Pmx)) 100 ml @ 400 mls/hr Q12 IVPB Last administered on 10/20/16 11:53; Admin Dose 400 MLS/HR; Start 10/20/16 at 11:00 Desmopressin Acetate (Ddavp) 0.1 mg BID PO ; Start 10/20/16 at 13:00 DHARMESH CHICAS MD Oct 20, 2016 16:42
[2016-10-20] MEDS: DESMOPRESSIN 0.1 MG TAB PO SCH ×2 (16:43→20:05)
--- NOTE | 2016-10-20 18:27 | RADRPT ---
PROCEDURE: US upper extremity arterial. CLINICAL INDICATION: Pain, edema TECHNIQUE: Multiple sonographic images of the right upper extremity arteries was obtained utilizin g grayscale, color-flow, compressive sonography and doppler imaging. The images were reviewed on a PACS workstation. COMPARISON: Ultrasound from yesterday FINDINGS: Velocities and waveforms were obtained as described below. Right arm Right subclavian artery: 107 cm/s; triphasic waveforms Right axillary artery: 89 cm/s; triphasic waveforms Right brachial artery: 83-108 cm/s; triphasic waveforms Right radial artery: 78 cm/s; triphasic waveforms Right ulnar artery: 50 cm/s; triphasic waveforms IMPRESSION: Unremarkable right upper extremity arterial Doppler ultrasound. RPTAT: AA .Duane Cano MD, Date Time Electronically viewed and signed by .Duane Cano MD, MD on 10/20/2016 18:27 .S/
[2016-10-20 19:30] VITALS: BP 122/65; RESP 18
[2016-10-20] MEDS ORDERED: EPOETIN 10000 UNITS/ML VIAL (ONCOLOGY) SC ONE (20:00)
[2016-10-20] MEDS: DOCUSATE SODIUM 100 MG CAP PO SCH (20:05)
[2016-10-20] MEDS: SOD FERRIC GLUC COMPLX 125 MG in SOD CHLORIDE 0.9% 100 ML IVPB SCH (20:05)
[2016-10-20] MEDS: ATORVASTATIN 20 MG TAB GTB SCH (20:05)
[2016-10-21] VITALS (9 sets, daily range): BP systolic 101–127; BP diastolic 43–60; PULSE 56–62; RESP 14–22
[2016-10-21] MEDS: DEXTROSE 5%-0.45% NACL 1,000 ML IV SCH ×3 (01:06→23:36)
[2016-10-21] MEDS: ALBUTEROL/IPRATROPIUM (NEB) 3 ML AMP HHN SCH ×6 (02:25→20:30)
[2016-10-21 05:55] LABS: HAAIG REFLEX REFLEX FILED
[2016-10-21 05:56] LABS: ADD SCAN DIFF NO
[2016-10-21 06:05] LABS: RETICULOCYTE COUNT % 5.7 % (0.5-1.5)
[2016-10-21 06:06] LABS: PLATELET COUNT 53 10^3/UL (140-415)
[2016-10-21] MEDS: PANTOPRAZOLE 40 MG INJ IV SCH (06:11)
[2016-10-21 06:17] LABS: LACTATE DEHYDROGENASE 639 IU/L (313-618)
[2016-10-21 06:23] LABS: INR 1.01; PROTIME 13.3 Sec (12.2-14.2)
[2016-10-21 06:26] LABS: IRON 233 ug/dl (35-150)
[2016-10-21 06:31] LABS: CALCIUM 8.7 mg/dl (8.4-10.2); CREATININE 0.72 mg/dl (0.44-1.00); POTASSIUM 3.8 mmol/L (3.5-5.1)
[2016-10-21 06:35] LABS: TOTAL IRON BINDING CAPACITY 273 ug/dl (241-421)
[2016-10-21 06:38] LABS: PARTIAL THROMBOPLASTIN TIME 38.3 Sec (25.0-35.0)
[2016-10-21 06:40] LABS: THROMBIN TIME 16.6 SEC (13.8-19.1)
[2016-10-21 06:43] LABS: D-DIMER 691.51 ng/ml (<460)
[2016-10-21 07:05] LABS: HEPATITIS B CORE ANTIBODY REACTIVE (NEGATIVE)
[2016-10-21 07:21] LABS: FOLATE 13.3 ng/ml (2.8-20.0)
[2016-10-21 07:37] LABS: FIBRIN SPLIT PRODUCT <10 ug/ml (<10)
[2016-10-21 08:48] LABS: ABNORMAL IP MESSAGE 1; HEMATOCRIT 21.2 % (37.0-47.0); MEAN CORPUSCULAR HGB CONC 32.5 g/dl (32.0-37.0); MEAN CORPUSCULAR VOLUME 104.4 fl (82.0-101.0); MEAN PLATELET VOLUME 10.7 fl (7.4-10.4); PLATELET COUNT 62 10^3/UL (140-415); RED BLOOD COUNT 2.03 10^6/ul (4.20-5.40); RED CELL DISTRIBUTION WIDTH 18.8 % (11.5-14.5); WHITE BLOOD COUNT 4.3 10^3/ul (4.8-10.8)
--- NOTE | 2016-10-21 09:08 | RADRPT ---
PROCEDURE: Ultrasound of the abdomen and retroperitoneum. CLINICAL INDICATION: Abdominal pain. TECHNIQUE: Multiple real-time longitudinal and transverse images of the abdomen were acquired util izing a curved array transducer. Images were reviewed on a high-resolution PACS workstation. COMPARISON: None available FINDINGS: The liver is normal in size, shape, and echogenicity. There is a 3.9 x 3.0 cm mass in the left lobe of the liver. There is borderline extrahepatic ductal dilatation, likely within normal limits for t his patient. The common bile duct measures 6.2 mm in maximal dimension. No gallstones or gallbladde r wall thickening is seen. The visualized portions of the pancreas are unremarkable with obscuration of the tail of the pancrea s. No free fluid is identified. The spleen is normal and measures 7.6 cm. The kidneys are without calcifications or hydronephrosis. The right kidney measures 9.0 cm, and th e left kidney measures 10.3 cm. The visualized portions of the aorta and inferior vena cava are unremarkable. IMPRESSION: 1. 3.9 cm left hepatic mass. Recommend multi phase CT scan of the liver for further evaluation. 2. Borderline common bile duct dilatation. Recommend correlation with serum bilirubin. 3. A otherwise unremarkable ultrasound of the abdomen and retroperitoneum. RPTAT: AA .Balaji Christianson MD, MD Date Time Electronically viewed and signed by .Balaji Christianson MD, MD on 10/21/2016 09:08 .B/
[2016-10-21] MEDS ORDERED: PROPOFOL 20 ML ONE (09:29)
[2016-10-21] MEDS ORDERED: LIDOCAINE 2% (SDV) 5 ML INJ ONE (09:29)
[2016-10-21] MEDS ORDERED: MEPERIDINE 25 MG INJ IV PRN (09:30)
[2016-10-21] MEDS ORDERED: INSULIN ASPART [NOVOLOG] 3 ML PEN SC ONE (09:30)
[2016-10-21] MEDS ORDERED: ONDANSETRON 4 MG INJ IV PRN (09:30)
[2016-10-21] MEDS ORDERED: DIPHENHYDRAMINE 50 MG INJ IV PRN (09:30)
--- NOTE | 2016-10-21 10:32 | GILP ---
DATE OF PROCEDURE: PROCEDURE: Esophagogastroduodenoscopy. PREOPERATIVE DIAGNOSIS: The patient presenting with a history of severe anemia, rule out bleeding u lcer disease, rule out gastrostomy site ulcer. POSTOPERATIVE DIAGNOSES: 1. Gastric erosions in the antrum. 1. Duodenal erosions. DESCRIPTION OF PROCEDURE: After the informed written consent was obtained, the patient was asked to lie on the left lateral side. Intravenous anesthesia was given by anesthesiologist, Dr. Fritz, when the patient became somnolent, the Olympus video upper endoscope was introduced into the oropharynx, then into the esophagus. Esophagus appeared. Stomach showed evidence of a few erosions in the ant rum with no ulcers, no neoplasm gastrostomy site was appearing healthy. No ulcer noted. Duodenum s howed evidence of duodenal inflammation. Scope at this time was withdrawn. Photographs were obtain ed and the procedure was terminated. PLAN: Recommend continue proton pump inhibitor therapy. Dictated By: SAGAR JAMES MD NC/ATA Conf#: [id number] DID#: [id number] CC: SMILEY VILLATORO MD; SAGAR JAMES MD;*EndCC*
--- NOTE | 2016-10-21 10:40 | GILP ---
DATE OF PROCEDURE: PROCEDURE: Colonoscopy. SURGEON: Marciano Bishop MD PREOPERATIVE DIAGNOSIS: A patient presenting with severe anemia, rule out colorectal neoplasm, susan riovenous malformation, hemorrhoids. POSTOPERATIVE DIAGNOSES: Extremely tortuous and redundant colon. Cecum could not be reached. Mini mal external hemorrhoids were noted. DESCRIPTION OF PROCEDURE: After the informed written consent was obtained, the patient was asked to lie on the left lateral side. The patient was given intravenous anesthesia by anesthesiologist, Dr Cherise Fritz. When the patient became somnolent, the Olympus video colonoscope was introduced into the re ctum and scope was advanced all the way to proximal ascending colon. Cecum could not be reached bec ause of severe tortuosity. Scope at this time was withdrawn and on the way out, minimal external he morrhoids were noted and the procedure was terminated. PLAN: Recommend continue present management. Dictated By: MARCIANO JACK/ATA Conf#: [id number] DID#: [id number] CC: SMILEY VILLATORO MD; MARCIANO BISHOP MD;*EndCC*
--- NOTE | 2016-10-21 11:19 | CONS ---
Date/Time of Note Date/Time of Note DATE: 10/21/16 TIME: 11:16 Assessment/Plan Assessment/Plan Additional Assessment/Plan 1. 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 2. History of chronic respiratory failure, status post tracheostomy, currently on Sheri mask. 3. 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 4. History of G-tube placement. 5. History of congestive heart failure with ejection fraction of 45% on last echocardiogram. 6. History of hypothyroidism. 7. History of hypertension. 8. History of diabetes mellitus. 9. History of coronary artery disease. 10. 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 PLAN: Na bumped to 149 Decrease DDAVP to 0.1 mg po daily will monitor Na will follow up Consultation Date/Type/Reason Admit Date/Time Oct 19, 2016 at 11:01 Initial Consult Date 10/20/16 Type of Consultation: NEPHROLOGY Reason for Consultation hyponatremia, central diabetes insipidus Referring Provider: SMILEY VILLATORO MD 24 HR Interval Summary Free Text/Dictation Na 149, BP stable, afebrile Exam/Review of Systems Vital Signs Vitals Vital Signs Date Time Temp Pulse Resp B/P Pulse Ox O2 Delivery O2 Flow Rate FiO2 10/21/16 10:48 58 15 101/51 100 Trach Collar 5.0 10/21/16 10:28 97.7 10/21/16 07:30 28 Intake and Output 10/20/16 10/20/16 10/21/16 15:00 23:00 07:00 Intake Total 600 ml 950 ml 900 ml Balance 600 ml 950 ml 900 ml Exam tracheostomy site is clear. No erythema, no discharge. NECK: Supple. No JVD. LUNGS: Decreased breath sounds at both lung bases. HEART: S1, S2, tachycardia, no murmur. ABDOMEN: Soft. G-tube is in place. EXTREMITIES: The patient has a significant right upper extremity swelling all the way up to her arm and shoulder. Lower extremities, 1 to 2+ pitting edema. NEUROLOGICAL: Uncooperative for exam. SKIN: Not assessed. Results Result Diagram: 10/21/16 0534 10/21/16 0534 Results 24 hrs Laboratory Tests Test 10/21/16 05:34 White Blood Count 4.3 L Red Blood Count 2.03 L Hemoglobin 6.9 *L Hematocrit 21.2 L Mean Corpuscular Volume 104.4 H Mean Corpuscular Hemoglobin 34.0 H Mean Corpuscular Hemoglobin Concent 32.5 Red Cell Distribution Width 18.8 H Platelet Count 53 L Mean Platelet Volume 10.7 H Absolute Reticulocyte Count 0.117 H Percent Reticulocyte Count 5.7 H Prothrombin Time 13.3 Prothrombin Time Ratio 1.0 INR International Normalized Ratio 1.01 Activated Partial Thromboplast Time 38.3 H Thrombin Time 16.6 Fibrinogen 347.0 Plasma Fibrin Degradation Products <10 D-Dimer 691.51 H D-Dimer Comment Sodium Level 149 H Potassium Level 3.8 Chloride Level 120 H Carbon Dioxide Level 28 Anion Gap 5 L Blood Urea Nitrogen 13 Creatinine 0.72 Glucose Level 114 Calcium Level 8.7 Iron Level 233 H Total Iron Binding Capacity 273 Percent Iron Saturation 85 H Ferritin Lactate Dehydrogenase 639 H Vitamin B12 Level > 1000 H Folate 13.3 Thyroid Stimulating Hormone (TSH) 22.300 H Hepatitis B Surface Antigen NEGATIVE Hepatitis B Core Total Antibody REACTIVE H Hepatitis C Antibody NEGATIVE HIV (1&2) Antibody NEGATIVE Medications Medications Current Medications Atorvastatin Calcium (Lipitor) 20 mg QHS GTB Last administered on 10/20/16 20: 05; Admin Dose 20 MG; Start 10/19/16 at 21:00 Zinc Sulfate (Zinc Sulfate) 220 mg DAILY GTB Last administered on 10/20/16 16: 47; Admin Dose 220 MG; Start 10/20/16 at 09:00 Pantoprazole (Protonix Iv) 40 mg DAILY@06 IV Last administered on 10/21/16 06: 11; Admin Dose 40 MG; Start 10/20/16 at 06:00 Ascorbic Acid (Vitamin C) 500 mg DAILY PO Last administered on 10/20/16 16:46 ; Admin Dose 500 MG; Start 10/20/16 at 09:00 Acetaminophen/ Hydrocodone Bitart 1 tab 1 tab Q4H PRN NGT PAIN; Start 10/20/16 at 00:00 Dextrose/Sodium Chloride 1,000 ml @ 75 mls/hr [id number] IV Last administered on 10/21/16 01:06; Admin Dose 75 MLS/HR; Start 10/20/16 at 00:00 Levetiracetam (Keppra 500 Mg/ 100ml (Pmx)) 100 ml @ 400 mls/hr Q12 IVPB Last administered on 10/20/16 21:20; Admin Dose 400 MLS/HR; Start 10/20/16 at 11:00 Desmopressin Acetate 0.1 mg 0.1 mg BID PO Last administered on 10/20/16 20:05 ; Admin Dose 0.1 MG; Start 10/20/16 at 13:00 Ferric Sodium Gluconate Complex/ Sodium Chloride (Ferrlecit/NS) 110 ml @ 110 mls/hr Q24H IVPB Last administered on 10/20/16 20:05; Admin Dose 110 MLS/HR; Start 10/20/16 at 20:00; Stop 10/24/16 at 20:59 MARTHA PRICE MD Oct 21, 2016 11:19
[2016-10-21 12:17] LABS: EOSINOPHILS # 0.1 10^3/ul (0.0-0.5); NEUTROPHIL # 3.1 10^3/ul (1.6-7.5); PLATELET ESTIMATE PLT APPEAR DECREASED
[2016-10-21 14:32] LABS: HEMOGLOBIN 6.9 g/dl (12.0-16.0)
--- NOTE | 2016-10-21 14:37 | CONS ---
Date/Time of Note Date/Time of Note DATE: 10/21/16 TIME: 14:34 Consult Date/Type/Reason Admit Date/Time Oct 19, 2016 at 11:01 Initial Consult Date 10/20/16 Type of Consultation: pulmonary Ordering Provider: SMILEY VILLATORO MD Subjective Patient remains stable this morning no new events Objective Vital Signs Date Time Temp Pulse Resp B/P Pulse Ox O2 Delivery O2 Flow Rate FiO2 10/21/16 10:48 58 15 101/51 100 Trach Collar 5.0 10/21/16 10:28 97.7 10/21/16 07:30 28 Intake and Output 10/20/16 10/20/16 10/21/16 15:00 23:00 07:00 Intake Total 600 ml 950 ml 900 ml Balance 600 ml 950 ml 900 ml Exam PHYSICAL EXAMINATION GENERAL: Chronically ill-appearing lady with tracheostomy. VITAL SIGNS: see below. HEENT: Pupils equal, round, and reactive to light. Tracheostomy site clean and intact. CARDIAC: S1, S2, no added sounds or murmurs CHEST: Diminished air entry bilaterally. ABDOMEN: Mildly distended. No guarding or rebound EXTREMITIES: No cyanosis, clubbing edema +1 NEUROLOGIC: Generalized weakness Results/Medications Result Diagram: 10/21/16 0534 10/21/16 0534 Results 24 hrs Laboratory Tests Test 10/21/16 05:34 White Blood Count 4.3 L Red Blood Count 2.03 L Hemoglobin 6.9 *L Hematocrit 21.2 L Mean Corpuscular Volume 104.4 H Mean Corpuscular Hemoglobin 34.0 H Mean Corpuscular Hemoglobin Concent 32.5 Red Cell Distribution Width 18.8 H Platelet Count 53 L Mean Platelet Volume 10.7 H Neutrophils % 71.0 Band Neutrophils % 1.0 Lymphocytes % 24.0 Monocytes % 1.0 Eosinophils % 3.0 Neutrophils # 3.1 Lymphocytes # 1.0 Monocytes # 0.0 L Eosinophils # 0.1 Platelet Estimate PLT APPEAR DECREASED Absolute Reticulocyte Count 0.117 H Percent Reticulocyte Count 5.7 H Prothrombin Time 13.3 Prothrombin Time Ratio 1.0 INR International Normalized Ratio 1.01 Activated Partial Thromboplast Time 38.3 H Thrombin Time 16.6 Fibrinogen 347.0 Plasma Fibrin Degradation Products <10 D-Dimer 691.51 H D-Dimer Comment Sodium Level 149 H Potassium Level 3.8 Chloride Level 120 H Carbon Dioxide Level 28 Anion Gap 5 L Blood Urea Nitrogen 13 Creatinine 0.72 Glucose Level 114 Calcium Level 8.7 Iron Level 233 H Total Iron Binding Capacity 273 Percent Iron Saturation 85 H Ferritin Lactate Dehydrogenase 639 H Vitamin B12 Level > 1000 H Folate 13.3 Thyroid Stimulating Hormone (TSH) 22.300 H Hepatitis B Surface Antigen NEGATIVE Hepatitis B Core Total Antibody REACTIVE H Hepatitis C Antibody NEGATIVE HIV (1&2) Antibody NEGATIVE Medications Current Medications Atorvastatin Calcium (Lipitor) 20 mg QHS GTB Last administered on 10/20/16 20: 05; Admin Dose 20 MG; Start 10/19/16 at 21:00 Zinc Sulfate (Zinc Sulfate) 220 mg DAILY GTB Last administered on 10/20/16 16: 47; Admin Dose 220 MG; Start 10/20/16 at 09:00 Pantoprazole (Protonix Iv) 40 mg DAILY@06 IV Last administered on 10/21/16 06: 11; Admin Dose 40 MG; Start 10/20/16 at 06:00 Ascorbic Acid (Vitamin C) 500 mg DAILY PO Last administered on 10/20/16 16:46 ; Admin Dose 500 MG; Start 10/20/16 at 09:00 Acetaminophen/ Hydrocodone Bitart 1 tab 1 tab Q4H PRN NGT PAIN; Start 10/20/16 at 00:00 Dextrose/Sodium Chloride 1,000 ml @ 75 mls/hr [id number] IV Last administered on 10/21/16 01:06; Admin Dose 75 MLS/HR; Start 10/20/16 at 00:00 Levetiracetam 100 ml @ 400 mls/hr Q12 IVPB Last administered on 10/20/16 21: 20; Admin Dose 400 MLS/HR; Start 10/20/16 at 11:00 Ferric Sodium Gluconate Complex/ Sodium Chloride (Ferrlecit/NS) 110 ml @ 110 mls/hr Q24H IVPB Last administered on 10/20/16 20:05; Admin Dose 110 MLS/HR; Start 10/20/16 at 20:00; Stop 10/24/16 at 20:59 Desmopressin Acetate (Ddavp) 0.1 mg DAILY PO ; Start 10/22/16 at 09:00 Assessment/Plan Chief Complaint/Hosp Course Assessment 1. Anemia questionable GI bleed evidence of pancytopenia with low white cell count and platelets 2. Mild pancreatitis with elevated lipase 3. History of CVA 4. Encephalopathy secondary to above 5. Hyponatremia 6. Dysphagia with G-tube 7. Chronic respiratory failure with tracheostomy, mild congestive cardiac failure Plan 1. Transfusion of packed red blood cells per primary team 2. Continue pulmonary toilet 3. Gentle diuresis if tolerated 4. Consider hematology evaluation 5. DVT GI prophylaxis Disposition Continue current level of care Consider [facility] evaluation Problems: LAURA FREEDMAN MD, [facility] Oct 21, 2016 14:37
[2016-10-21] MEDS: LEVETIRACETAM 500 MG (PMX) 100 ML IVPB SCH ×2 (15:17→22:33)
--- NOTE | 2016-10-21 15:25 | CONS ---
Date/Time of Note Date/Time of Note DATE: 10/21/16 TIME: 15:18 Assessment/Plan Assessment/Plan Chief Complaint/Hosp Course This is a 56-year-old female who has a past medical history of previous CVA with left-sided residual weakness since 2013, history of chronic respiratory failure with status post tracheostomy, dysphagia status post PEG tube placement , history of COPD, CHF with ejection fraction 35% to 40%, hypothyroidism, seizure disorder, diabetes mellitus, coronary artery disease, history of a previous DVT, history of previous central diabetes insipidus. She is a [employer]. She was brought back to the [facility] because of having low hemoglobin, low platelet count. Due to previous history of atrial fibrillation, she has been on previous chronic anticoagulation with Eliquis 5 mg p.o. b.i.d. At the time of my evaluation, the patient is nonverbal, noncommunicative due to her tracheostomy, on ventilator. No overt signs of bleeding. # Macrocytic anemia and thrombocytopenia - s/p EGD/colonoscopy demonstrating minimal external hemorrhoids, gastric erosions in antrum, duodenal erosions - iron panel Fe 233, TIBC 273, %sat 85, ferritin > 1000 consistent with inflammation, B12 > 1000, folate 13.3 WNL, pending methylmalonic acid, homocysteine - LDH elevated at 639, will check haptoglobin; retic count elevated at 117K but still inappropriately low for degree of anemia - TSH elevated at 22.30, will check free T4 and defer to primary team - Hep B core Antibody positive, Hep B surface Ag neg, Hep C Ab neg, HIV neg; DIC panel not suggestive of DIC - abdominal US demonstrated 3.9 cm left hepatic mass, multi phase CT scan of the liver for further evaluation was recommended by radiologist - will obtain if radiology able to perform given patient's trach. Normal spleen measuring 7.6 cm. Borderline common bile duct dilatation. Will check AFP. - peripheral smear with path review demonstrates no schistocytes, some anisocytosis and basophilic stippling otherwise RBC fairly unremarkable - consider BMBx depending on above results - given patient is a [employer], patient on iron and erythropoietin a dministration. Hgb 6.9 today, however cannot transfuse as patient is [employer]. Continue to monitor. Problems: Consultation Date/Type/Reason Admit Date/Time Oct 19, 2016 at 11:01 Initial Consult Date 10/20/16 Type of Consultation: Hematology Referring Provider: SMILEY VILLATORO MD 24 HR Interval Summary Free Text/Dictation No significant bleeding. Exam/Review of Systems Vital Signs Vitals Vital Signs Date Time Temp Pulse Resp B/P Pulse Ox O2 Delivery O2 Flow Rate FiO2 10/21/16 14:51 68 18 100 Aerosol 5.0 28 10/21/16 10:48 101/51 10/21/16 10:28 97.7 Intake and Output 10/20/16 10/20/16 10/21/16 15:00 23:00 07:00 Intake Total 600 ml 950 ml 900 ml Balance 600 ml 950 ml 900 ml Exam Constitutional: well developed, opens eyes but not responsive Eyes: nl sclera ENMT: nl external ears & nose Neck: non-tender Respiratory: diminished breath sounds (Diminished breath sounds bilateral lungs and bases) Cardiovascular: regular rate and rhythm Gastrointestinal: non-tender, other (G-tube intact), soft Genitourinary - Female: other Musculoskeletal: muscle weakness Neurological: confused, lethargic Results Result Diagram: 10/21/16 0534 10/21/16 0534 Results 24 hrs Laboratory Tests Test 10/21/16 05:34 White Blood Count 4.3 L Red Blood Count 2.03 L Hemoglobin 6.9 *L Hematocrit 21.2 L Mean Corpuscular Volume 104.4 H Mean Corpuscular Hemoglobin 34.0 H Mean Corpuscular Hemoglobin Concent 32.5 Red Cell Distribution Width 18.8 H Platelet Count 53 L Mean Platelet Volume 10.7 H Neutrophils % 71.0 Band Neutrophils % 1.0 Lymphocytes % 24.0 Monocytes % 1.0 Eosinophils % 3.0 Neutrophils # 3.1 Lymphocytes # 1.0 Monocytes # 0.0 L Eosinophils # 0.1 Platelet Estimate PLT APPEAR DECREASED Absolute Reticulocyte Count 0.117 H Percent Reticulocyte Count 5.7 H Prothrombin Time 13.3 Prothrombin Time Ratio 1.0 INR International Normalized Ratio 1.01 Activated Partial Thromboplast Time 38.3 H Thrombin Time 16.6 Fibrinogen 347.0 Plasma Fibrin Degradation Products <10 D-Dimer 691.51 H D-Dimer Comment Sodium Level 149 H Potassium Level 3.8 Chloride Level 120 H Carbon Dioxide Level 28 Anion Gap 5 L Blood Urea Nitrogen 13 Creatinine 0.72 Glucose Level 114 Calcium Level 8.7 Iron Level 233 H Total Iron Binding Capacity 273 Percent Iron Saturation 85 H Ferritin Lactate Dehydrogenase 639 H Vitamin B12 Level > 1000 H Folate 13.3 Thyroid Stimulating Hormone (TSH) 22.300 H Hepatitis B Surface Antigen NEGATIVE Hepatitis B Core Total Antibody REACTIVE H Hepatitis C Antibody NEGATIVE HIV (1&2) Antibody NEGATIVE Medications Medications Current Medications Atorvastatin Calcium (Lipitor) 20 mg QHS GTB Last administered on 10/20/16 20: 05; Admin Dose 20 MG; Start 10/19/16 at 21:00 Zinc Sulfate (Zinc Sulfate) 220 mg DAILY GTB Last administered on 10/20/16 16: 47; Admin Dose 220 MG; Start 10/20/16 at 09:00 Pantoprazole (Protonix Iv) 40 mg DAILY@06 IV Last administered on 10/21/16 06: 11; Admin Dose 40 MG; Start 10/20/16 at 06:00 Ascorbic Acid (Vitamin C) 500 mg DAILY PO Last administered on 10/20/16 16:46 ; Admin Dose 500 MG; Start 10/20/16 at 09:00 Acetaminophen/ Hydrocodone Bitart 1 tab 1 tab Q4H PRN NGT PAIN; Start 10/20/16 at 00:00 Dextrose/Sodium Chloride 1,000 ml @ 75 mls/hr [id number] IV Last administered on 10/21/16 01:06; Admin Dose 75 MLS/HR; Start 10/20/16 at 00:00 Levetiracetam 100 ml @ 400 mls/hr Q12 IVPB Last administered on 10/20/16 21: 20; Admin Dose 400 MLS/HR; Start 10/20/16 at 11:00 Ferric Sodium Gluconate Complex/ Sodium Chloride (Ferrlecit/NS) 110 ml @ 110 mls/hr Q24H IVPB Last administered on 10/20/16 20:05; Admin Dose 110 MLS/HR; Start 10/20/16 at 20:00; Stop 10/24/16 at 20:59 Desmopressin Acetate (Ddavp) 0.1 mg DAILY PO ; Start 10/22/16 at 09:00 DHARMESH CHICAS MD Oct 21, 2016 15:25
[2016-10-21] MEDS: ZINC SULFATE 220 MG CAP GTB SCH (15:30)
[2016-10-21] MEDS: ASCORBIC ACID 500 MG TAB PO SCH (15:30)
--- NOTE | 2016-10-21 15:38 | PN ---
Date/Time of Note Date/Time of Note DATE: 10/21/16 TIME: 15:32 Assessment/Plan VTE Prophylaxis VTE Prophylaxis Intervention: SCD's Lines/Catheters IV [facility] Saline Lock Assessment/Plan Chief Complaint/Hosp Course ASSESSMENT AND PLAN: 1. Anemia and thrombocytopenia: The patient is [employer] and cannot get any blood products. Dr. Washburn following in hematology consultation continue iron and erythropoietin. 2. Tracheostomy with history of respiratory failure. Dr. Gomez is following in pulmonology consultation continue bronchodilators and oxygen supplementation trach care. 3. History of chronic obstructive pulmonary disease. 4. History of cerebrovascular accident with right-sided hemiplegia. 5. Dysphagia with PEG tube. Continue G tube feeding. Continue aspiration precaution 6. Diabetes mellitus type 2. 7. Gastric erosions with antrum and duodenum, continue proton pump therapy. 8. Right upper extremities edema, patient status post antibiotics for possible cellulitis, will obtain venous Doppler of right upper extremity. 9. Central diabetes insipidus, continue DDAVP. Problems: Subjective 24 Hr Interval Summary Free Text/Dictation Hemoglobin is 6.9 today, no blood transfusion ordered since patient is [employer], right upper extremities edema. Exam/Review of Systems Vital Signs Vitals Vital Signs Date Time Temp Pulse Resp B/P Pulse Ox O2 Delivery O2 Flow Rate FiO2 10/21/16 14:51 68 18 100 Aerosol 5.0 10/21/16 10:48 101/51 10/21/16 10:28 97.7 Intake and Output 10/20/16 10/20/16 10/21/16 15:00 23:00 07:00 Intake Total 600 ml 950 ml 900 ml Balance 600 ml 950 ml 900 ml Exam GENERAL: Well-developed, well-nourished female. Currently opens eyes in traces. Does not follow any commands. HEENT: Head is atraumatic, normocephalic. Pupils equal, round, reactive to light and accommodation. NECK: Supple. There is a tracheostomy at the base of the neck with no bleeding. CHEST: Lungs have diminished air entry bilaterally, scattered rhonchi. CARDIOVASCULAR: Normal S1, S2. No murmurs, gallops, clicks, or rubs noted. ABDOMEN: Protuberant, soft, nondistended, nontender. G-tube with intact stoma. EXTREMITIES: Mild edema. Pulses equal bilaterally 2+. Patient has a right side dense hemiplegia. SKIN: There is no rash, petechiae noted. NEUROLOGIC: Patient is nonverbal, awake, opens eyes and traces, does not follow any commands. Results Result Diagram: 10/21/16 0534 10/21/16 0534 Results 24 hrs Laboratory Tests Test 10/21/16 05:34 White Blood Count 4.3 L Red Blood Count 2.03 L Hemoglobin 6.9 *L Hematocrit 21.2 L Mean Corpuscular Volume 104.4 H Mean Corpuscular Hemoglobin 34.0 H Mean Corpuscular Hemoglobin Concent 32.5 Red Cell Distribution Width 18.8 H Platelet Count 53 L Mean Platelet Volume 10.7 H Neutrophils % 71.0 Band Neutrophils % 1.0 Lymphocytes % 24.0 Monocytes % 1.0 Eosinophils % 3.0 Neutrophils # 3.1 Lymphocytes # 1.0 Monocytes # 0.0 L Eosinophils # 0.1 Platelet Estimate PLT APPEAR DECREASED Absolute Reticulocyte Count 0.117 H Percent Reticulocyte Count 5.7 H Prothrombin Time 13.3 Prothrombin Time Ratio 1.0 INR International Normalized Ratio 1.01 Activated Partial Thromboplast Time 38.3 H Thrombin Time 16.6 Fibrinogen 347.0 Plasma Fibrin Degradation Products <10 D-Dimer 691.51 H D-Dimer Comment Sodium Level 149 H Potassium Level 3.8 Chloride Level 120 H Carbon Dioxide Level 28 Anion Gap 5 L Blood Urea Nitrogen 13 Creatinine 0.72 Glucose Level 114 Calcium Level 8.7 Iron Level 233 H Total Iron Binding Capacity 273 Percent Iron Saturation 85 H Ferritin Lactate Dehydrogenase 639 H Vitamin B12 Level > 1000 H Folate 13.3 Thyroid Stimulating Hormone (TSH) 22.300 H Hepatitis B Surface Antigen NEGATIVE Hepatitis B Core Total Antibody REACTIVE H Hepatitis C Antibody NEGATIVE HIV (1&2) Antibody NEGATIVE Medications Medications Current Medications Atorvastatin Calcium (Lipitor) 20 mg QHS GTB Last administered on 10/20/16 20: 05; Admin Dose 20 MG; Start 10/19/16 at 21:00 Zinc Sulfate (Zinc Sulfate) 220 mg DAILY GTB Last administered on 10/21/16 15: 30; Admin Dose 220 MG; Start 10/20/16 at 09:00 Pantoprazole (Protonix Iv) 40 mg DAILY@06 IV Last administered on 10/21/16 06: 11; Admin Dose 40 MG; Start 10/20/16 at 06:00 Ascorbic Acid (Vitamin C) 500 mg DAILY PO Last administered on 10/21/16 15:30 ; Admin Dose 500 MG; Start 10/20/16 at 09:00 Acetaminophen/ Hydrocodone Bitart 1 tab 1 tab Q4H PRN NGT PAIN; Start 10/20/16 at 00:00 Dextrose/Sodium Chloride 1,000 ml @ 75 mls/hr [id number] IV Last administered on 10/21/16 01:06; Admin Dose 75 MLS/HR; Start 10/20/16 at 00:00 Levetiracetam 100 ml @ 400 mls/hr Q12 IVPB Last administered on 10/21/16 15: 17; Admin Dose 400 MLS/HR; Start 10/20/16 at 11:00 Ferric Sodium Gluconate Complex/ Sodium Chloride (Ferrlecit/NS) 110 ml @ 110 mls/hr Q24H IVPB Last administered on 10/20/16 20:05; Admin Dose 110 MLS/HR; Start 10/20/16 at 20:00; Stop 10/24/16 at 20:59 Desmopressin Acetate (Ddavp) 0.1 mg DAILY PO ; Start 10/22/16 at 09:00 LATONIA CONRAD Oct 21, 2016 15:38
[2016-10-21] MEDS ORDERED: LEVOTHYROXINE 50 MCG TAB GTB SCH (16:00)
[2016-10-21] MEDS ORDERED: EPOETIN 10000 UNITS/ML (NON ESRD/NON ONCOLOGY) SC SCH (17:00)
[2016-10-21] MEDS: SOD FERRIC GLUC COMPLX 125 MG in SOD CHLORIDE 0.9% 100 ML IVPB SCH (21:24)
[2016-10-21] MEDS: ATORVASTATIN 20 MG TAB GTB SCH (21:29)
[2016-10-22] MEDS: ALBUTEROL/IPRATROPIUM (NEB) 3 ML AMP HHN SCH (01:31)
--- NOTE | 2016-10-22 06:22 | CONS ---
DATE OF ADMISSION: 10/19/2016 DATE OF CONSULTATION: 10/20/2016 Dear doctors: HISTORY OF PRESENT ILLNESS: Ms. Toro is a 56-year-old female with plethora of medical conditions who has left-sided weakness secondary to a history of stroke in 2013. Patient also has history of c hronic respiratory failure with status post tracheostomy, and has dysphagia who is status post PEG t ube placement. Patient also has history of COPD, CHF with ejection fraction of 35% to 40%. At the moment, the patient has multiple medical conditions in which she is currently being managed and is a [employer]. The patient has a right upper extremity swelling and upon studies was identifie d the patient has no issues with her arterial perfusion; however, she has had a history of AV fistul a of that upper extremity and there is some concern that she may have central stenosis. At the [facility], it is difficult to ascertain any further information as the patient does not seem to be able to answer all questions appropriately. The patient is nonverbal, noncommunicative, so unable to ascert ain if she is having discomfort or pain in her upper extremity. REVIEW OF SYSTEMS: Unable to ascertain as the patient is nonverbal. PAST MEDICAL HISTORY: Entails history of stroke with left-sided residual weakness since 2013, chron ic respiratory failure, status post tracheostomy, dysphagia, status post PEG tube placement, COPD, C HF with ejection fraction of 35% to 40%, hypothyroidism, seizure disorder, diabetes, coronary artery disease, hyperlipidemia, previous DVT previous central diabetes insipidus on chronic anticoagulatio n secondary to atrial fibrillation, Eliquis 5 mg p.o. b.i.d. on chronic ventilator, macrocytic anemi a and thrombocytopenia, external hemorrhoids, gastric erosions in the antrum and duodenal erosions. PAST SURGICAL HISTORY: Patient is status post EGD, colonoscopy, PEG tube placement, and tracheostom y. SOCIAL HISTORY: Patient is from a halfway facility. No alcohol, tobacco or illicit drug us e identified in the charting. FAMILY HISTORY: Not available. ALLERGIES: NO KNOWN DRUG ALLERGIES. PHYSICAL EXAMINATION: GENERAL: Patient is nonverbal and does not seem to be in distress. HEENT: Mucosa moist. Normocephalic, atraumatic. NECK: Supple, no carotid bruit. Tracheostomy intact. LUNGS: Coarse breath sounds bilaterally. CARDIOVASCULAR: S1, S2 present. No murmurs. ABDOMEN: G-tube intact, soft, nontender, nondistended. LOWER EXTREMITIES: Palpable femoral pulses, nonpalpable pedal pulses. Unable to ascertain motor an d sensory as the patient is nonverbal. Capillary refill about 3 to 4 seconds. There is edema of 2+. Upper extremity: Palpable brachial pulse. Motor and sensory unable to ascertain as the patient is not able to follow commands. Cap refill about 3 seconds. There is edema about 1 to 2+. ASSESSMENT AND PLAN: Patient with multiple medical conditions, currently has central stenosis with right upper extremity swelling: It seems that the patient may have some component of central stenos is that has caused the patient to have upper extremity swelling. At this point, the patient does no t need any further evaluation. 1. If the swelling is discomforting, would recommend applying gentle Pipo wrap from her wrist all th e way up to her shoulder area for now. 2. Optimize vascular status (BP meds, diet, nutrition, exercise, sugar control, antiplatelets). Discussed findings, plan and management with the primary service. Thank you for allowing us to partake in the care of your patient. Please call with any questions. Dictated By: DAJA ELLSWORTH/ATA Conf#: [id number] DID#: [id number]
[2016-10-22] MEDS ORDERED: DESMOPRESSIN 0.1 MG TAB PO SCH (09:00)
--- NOTE | 2016-10-23 20:55 | DS ---
DATE OF ADMISSION: 10/19/2016 DATE OF DISCHARGE: 10/22/2016 FINAL DIAGNOSES: 1. Anemia and thrombocytopenia. 2. History of cerebrovascular accident with right-sided hemiplegia, bed bound status. 3. Tracheostomy with history of respiratory failure. 4. History of chronic obstructive pulmonary disease. 5. Dysphagia with percutaneous endoscopic gastrostomy. 6. Diabetes mellitus type 2. 7. Gastric erosion of antrum and duodenum per esophagogastroduodenoscopy. 8. Right upper extremity edema. 9. Central diabetes insipidus. BRIEF HISTORY: The patient is a 56-year-old unfortunate female with history of CVA with right-sided weakness since 2013. The patient also with tracheostomy and PEG. The patient was brought from [facility] for anemia, which noted on routine lab. The patient is Jehov ah's Witness and blood transfusion and cannot be done due to patient's ____. The patient was admitt ed for further evaluation and management. HOSPITAL COURSE: The patient was evaluated by Dr. Bishop in gastroenterology consultation. The pat ient underwent colonoscopy with notion of extremely tortuous and redundant colon and minimal externa l hemorrhoids. The patient also underwent EGD with notion of gastric erosions in the antrum and duo denal erosions. The patient continued on Protonix. The patient was evaluated by Dr. ____ in hemato logy/oncology consultation with the workup being in the process. The patient was also evaluated for right upper extremity swelling by Dr. Zamora in vascular surgery. The patient was also evaluate d by Dr. Hernandez for hyponatremia. The patient was transferred to [facility] to insurance reasons. CONDITION ON TRANSFERRING: Hemodynamically stable. ACTIVITY: As patient tolerates. DISCHARGE MEDICATIONS: 1. DDAVP. 2. Epogen. 3. Levothyroxine. 4. Zofran. 5. Demerol. 6. Benadryl. 7. NovoLog per mild algorithm sliding scale. 8. Ferrous sodium gluconate complex. 9. Keppra. 10. Zinc sulfate. 11. Ascorbic acid. 12. Protonix. 13. DuoNeb. Dictated By: LATONIA CONRAD FACSIMILE MACHINE OPERATOR for SMILEY VILLATORO MD SR/NTS Conf#: [id number] [facility]#: [id number]
[2016-10-24 19:00] LABS: HOMOCYSTEINE - CARDIOVASCULAR 8.4 umol/L (<10.4)
== END 2016-10-22 03:25 | disposition short-term general hospital (02) | DRG 811 ==
LOC: E/R 08:43 → MS2 11:01
PROVIDERS: ADMIT Internal Medicine; ATTEND Internal Medicine
PROC: 0DJ08ZZ Inspection of Upper Intestinal Tract, Via Natural or Artificial Opening Endoscopic (ICD-10-PCS; principal; 2016-10-21 09:30)
PROC: 0DJD8ZZ Inspection of Lower Intestinal Tract, Via Natural or Artificial Opening Endoscopic (ICD-10-PCS; 2016-10-21 09:30)
DX: D53.9 Nutritional anemia, unspecified (principal); G93.40 Encephalopathy, unspecified; J96.10 Chronic respiratory failure, unspecified whether with hypoxia or hypercapnia; E23.2 Diabetes insipidus; Z93.0 Tracheostomy status; I69.354 Hemiplegia and hemiparesis following cerebral infarction affecting left non-dominant side; E87.1 Hypo-osmolality and hyponatremia; Q43.8 Other specified congenital malformations of intestine; D69.6 Thrombocytopenia, unspecified; J44.9 Chronic obstructive pulmonary disease, unspecified; I50.9 Heart failure, unspecified; I70.208 Unspecified atherosclerosis of native arteries of extremities, other extremity; I25.10 Atherosclerotic heart disease of native coronary artery without angina pectoris; I25.2 Old myocardial infarction; E86.0 Dehydration; E11.9 Type 2 diabetes mellitus without complications; R94.5 Abnormal results of liver function studies; R13.10 Dysphagia, unspecified; R60.0 Localized edema; G40.909 Epilepsy, unspecified, not intractable, without status epilepticus; K25.9 Gastric ulcer, unspecified as acute or chronic, without hemorrhage or perforation; K64.4 Residual hemorrhoidal skin tags; K26.9 Duodenal ulcer, unspecified as acute or chronic, without hemorrhage or perforation; K59.9 Functional intestinal disorder, unspecified; Q27.33 Arteriovenous malformation of digestive system vessel; Z93.1 Gastrostomy status; Z86.718 Personal history of other venous thrombosis and embolism; Z87.01 Personal history of pneumonia (recurrent)
CPT/HCPCS: 71010; 76700; 80048; 80053; 82607; 82728; 82746; 82962; 83090; 83540; 83605; 83615; 83690; 83921; 84443; 85025; 85045; 85049; 85362; 85378; 85384; 85610; 85670; 85730; 86703; 86704; 86709; 86803; 86850; 86900; 86901; 87081; 87340; 93005; 93931; 93970; 94640; 94664; J0885; C9113; J0692; J1953; J2916; J3370; J7030; J7040; J7042; J7050